=== PATIENT | male | born 1985 | race Caucasian/White ===

== ENCOUNTER 2016-06-05 16:16 | Emergency (ER) | payer MEDICAID ==
[~2016-06-05] VITALS: Ht 180.3 cm; Wt 108.9 kg
[2016-06-05 16:25] VITALS: BP 138/72; PULSE 101; RESP 16; TEMP 98.4; O2SAT 99
[2016-06-05] MEDS ORDERED: DEXAMETHASONE SOD PHOSPHATE 10 MG/ML VIAL IM ONE (17:00)
[2016-06-05 17:26] VITALS: BP 138/72; PULSE 101; RESP 16; TEMP 98.4; O2SAT 99
== END 2016-06-05 17:26 | disposition home or self-care (01) ==
LOC: SED 16:16
DX: M10.9 Gout, unspecified (principal); F17.200 Nicotine dependence, unspecified, uncomplicated; Z71.6 Tobacco abuse counseling
CPT/HCPCS: 96372; 99283; J1100